=== PATIENT | female | born 1930 | race Caucasian/White ===

== ENCOUNTER 2017-10-14 10:00 | Observation (INO) ==
[2017-10-14] MEDS ORDERED: ONDANSETRON 4 MG/2 ML VIAL IV ONE (10:23)
[2017-10-14] MEDS ORDERED: PANTOPRAZOLE 40 MG VIAL IV ONE (10:24)
[2017-10-14] MEDS ORDERED: 0.9 % SODIUM CHLORIDE 1,000 ML IV ONE ×2 (10:26→11:45)
--- NOTE | 2017-10-14 10:27 | Emergency Department Note ---
General Adult HPI - General Chief complaint: Cold/Flu Symptoms Stated complaint: Coughing up blood Time Seen by Provider: 10/14/17 10:05 Source: patient Mode of arrival: ambulatory Limitations: no limitations - History of Present Illness HPI Narrative: 87-year-old female presents with hematemesis since last night. She states last night she had 2 episodes of vomiting with blood. She had one episode of hematemesis here. This has coffee-ground appearance. She states she has needed multiple transfusions in the past due to slow GI bleed. She takes iron supplements so she has black stool. Her last transfusion was about 5-6 months ago. She also had a fall about a week ago and was seen and had negative rib x- rays. She states she has pain in her ribs as well as her knees. She has a little bit of epigastric pain that radiates up to the left. She denies any nausea at this time. She states after she had an episode of vomiting she was coughing up small amounts of clots. She has a chronic cough. She denies any shortness of breath. Her rib pain is left-sided. She takes antacid medications and has a long history of GERD. She has been on Eliquis for 2 weeks due to paroxysmal A. fib. Patient states she has a blockage on the left side of her vessels so she always has low blood pressure on the left arm and normal pressure on her right arm. - Related Data Home Medications Medication Instructions Recorded Confirmed Amitriptyline [Elavil] 50 mg PO HS PRN 10/14/17 10/14/17 Apixaban [Eliquis] 5 mg PO BID 10/14/17 10/14/17 Aspirin [[place] Aspirin] 81 mg PO DAILY 10/14/17 10/14/17 Ferrous Gluconate [Fergon] 324 mg PO BID 10/14/17 10/14/17 HYDROcodone/APAP 5/325MG [[place] 0.5 tab PO Q6HP PRN 10/14/17 10/14/17 5-325Mg] Norgestrel-Ethinyl Estradiol 1 each PO 10/14/17 [Elinest-28 Tablet] Omeprazole [PriLOSEC] 40 mg PO DAILY 10/14/17 10/14/17 amLODIPine [Norvasc] 5 mg PO DAILY 10/14/17 10/14/17 traZODone HCL [Trazodone HCl] 50 mg PO QHS 10/14/17 10/14/17 Allergies Allergy/AdvReac Type Severity Reaction Status Date / Time nitrofurantoin Allergy Severe Nausea/Vomiting, Verified 10/14/17 10:01 [From MACROBID] SHAKING, DIAPHORESIS Sulfa (Sulfonamide Allergy Mild Hives Verified 10/14/17 10:01 Antibiotics) [SULFA (SULFONAMIDE ANTIBIOTICS)] Review of Systems All systems ED: reviewed and negative except as stated. Past Medical History - Past Medical History Medical history: Reports: atrial fibrillation (paroxysmal), hypertension, other (chronic cough, pulmonary fibrosis, GERD, iron deficiency anemia) Psychiatric history: Reports: no psych history [employer] history: Reports: non-contributory Surgical history ED: Reports: appendectomy Family history: Reports: non-contributory - Social History smoking status: Former smoker Physical Exam Emesis was visualized and it has a coffee-ground appearance Limitations: no limitations General appearance: alert, in no apparent distress Head: atraumatic Eye: Present: normal appearance. Absent: conjunctival injection Neck: Present: normal inspection, full ROM Chest: Present: symmetric chest wall rise, tenderness (left anterior ribs) Respiratory: Present: other (crackles left lower lobe) Cardiovascular: Present: tachycardia, normal heart sounds Abdominal: Present: soft, tenderness, normal bowel sounds Abdominal tenderness: Present: epigastrium, mild Rectal: Present: normal inspection, normal rectal tone, heme (+) stool. Absent : fecal impaction, hemorrhoids, tenderness Extremities: Present: normal inspection, full ROM Neurological: Present: alert, oriented X3 Psychiatric: Present: normal affect, normal mood Skin: Present: warm, dry, intact Course Course Narrative: Blood pressures initially were running low on the right arm and then the cuff was switched to the left. Her blood pressure is 165/94. Patient will have a scope done by Dr. Holt and be admitted. Vital Signs Temperature 98.0 F 10/14/17 10:01 Pulse Rate 55 L 10/14/17 10:01 Respiratory Rate 18 10/14/17 10:01 Blood Pressure 199/72 10/14/17 10:01 Pulse Oximetry (%) 99 10/14/17 10:01 Temperature 98.0 F 10/14/17 14:42 Pulse Rate 97 H 10/14/17 14:45 Respiratory Rate 19 10/14/17 14:45 Blood Pressure 144/109 10/14/17 14:42 Pulse Oximetry (%) 94 10/14/17 14:45 Medical Decision Making - Medical Records Medical records reviewed: Yes I reviewed the patient's medical records. Previous recorded hemoglobin was 12.0 in April. - Lab Data Lab results reviewed: Yes I reviewed the patient's lab results. Result diagrams: 10/14/17 10:23 10/14/17 10:23 Lab Results 10/14/17 10/14/17 10/14/17 Range/Units 10:23 10:23 10:23 WBC 17.6 H (4.5-11.0) K/mcL RBC 3.68 L (4.00-5.20) M/mcL Hgb 10.0 L (12.0-15.0) g/dL Hct 31.1 L (36.0-48.0) % POC Hct 31.0 L (36.0-48.0) % MCV 84.6 (80.0-100.0) fL MCH 27.1 (26.0-34.0) pg MCHC 32.1 (31.0-36.0) g/dL RDW 14.7 H (11.5-14.5) % Plt Count 433 (140-440) K/mcL MPV 8.2 (7.4-10.4) fL Gran % 78.5 H (38.0-78.0) % Lymph % (Auto) 13.4 L (15.5-49.0) % [place] % (Auto) 5.9 (1.0-12.0) % Eos % (Auto) 1.9 (0.0-7.0) % Baso % (Auto) 0.3 (0.0-2.0) % Gran # 13.8 H (1.8-8.0) K/mcL Lymph # (Auto) 2.4 (1.5-4.8) K/mcL [place] # (Auto) 1.0 H (0.1-0.9) K/mcL Eos # (Auto) 0.3 (0.0-0.7) K/mcL Baso # (Auto) 0.1 (0.0-0.3) K/mcL Band Neutrophils % VBG Lactic Acid 1.6 (0.5-2.2) mmol/L POC Sodium 141 (133-145) mmol/L Sodium 139 (133-145) mmol/L POC Potassium 4.1 (3.3-5.1) mmol/L Potassium 4.1 (3.3-5.1) mmol/L POC Chloride 104 (96-108) mmol/L Chloride 103 (96-108) mmol/L Carbon Dioxide 23 (22-30) mmol/L POC Total CO2 24 (22-30) mmol/L Anion Gap 13.0 (8-16) POC BUN 25 H (8-23) mg/dl BUN 22 (8-23) mg/dl Creatinine 0.8 (0.6-1.1) mg/dl POC Creatinine 0.7 (0.6-1.1) mg/dl GFR Calculation 67 Glucose 164 H (70-105) mg/dL POC Glucose 165 H (70-105) mg/dL Calcium 8.8 (8.6-10.4) mg/dl POC WB Ioniz Calcium 1.02 L (1.16-1.32) mmol/L Iron (37-145) mcg/dl TIBC (228-428) ug/dl Unsat Iron Binding (112-346) mcg/dL Transferrin % Sat (15-50) % Ferritin (30-400) ng/ml Total Bilirubin 0.3 (0.0-1.0) mg/dL AST 18 (0-37) U/l ALT 11 (0-40) U/l Alkaline Phosphatase 117 (39-117) U/L Total Protein 6.6 (5.9-8.4) gm/dL Albumin 4.1 (3.2-5.2) gm/dL Globulin 2.5 (2.2-3.7) gm/dL Albumin/Globulin Ratio 1.6 (1.0-2.3) Urine Color Urine Appearance Urine pH (5.0-9.0) Ur Specific [place] (1.000-1.035) Urine Protein (NEG) mg/dL Urine Glucose (UA) (NEG) mg/dL Urine Ketones (NEG) mg/dL Urine Occult Blood (<0.03) mg/dL Urine Nitrate (NEG) Urine Bilirubin (NEG) mg/dL Urine Urobilinogen (NEG) mg/dL Ur Leukocyte Esterase (NEG) /uL Urine RBC (0-1) /hpf Urine WBC (0-4) /hpf Ur Squamous Epith Cells (0-4) /hpf Urine Bacteria (0) /hpf Urine Mucus (0) /hpf Ur Culture Indicated? 10/14/17 10/14/17 10/14/17 Range/Units 10:23 10:23 10:23 WBC (4.5-11.0) K/mcL RBC (4.00-5.20) M/mcL Hgb (12.0-15.0) g/dL Hct (36.0-48.0) % POC Hct (36.0-48.0) % MCV (80.0-100.0) fL MCH (26.0-34.0) pg MCHC (31.0-36.0) g/dL RDW (11.5-14.5) % Plt Count (140-440) K/mcL MPV (7.4-10.4) fL Gran % (38.0-78.0) % Lymph % (Auto) (15.5-49.0) % [place] % (Auto) (1.0-12.0) % Eos % (Auto) (0.0-7.0) % Baso % (Auto) (0.0-2.0) % Gran # (1.8-8.0) K/mcL Lymph # (Auto) (1.5-4.8) K/mcL [place] # (Auto) (0.1-0.9) K/mcL Eos # (Auto) (0.0-0.7) K/mcL Baso # (Auto) (0.0-0.3) K/mcL Band Neutrophils % Not Reportable VBG Lactic Acid (0.5-2.2) mmol/L POC Sodium (133-145) mmol/L Sodium (133-145) mmol/L POC Potassium (3.3-5.1) mmol/L Potassium (3.3-5.1) mmol/L POC Chloride (96-108) mmol/L Chloride (96-108) mmol/L Carbon Dioxide (22-30) mmol/L POC Total CO2 (22-30) mmol/L Anion Gap (8-16) POC BUN (8-23) mg/dl BUN (8-23) mg/dl Creatinine (0.6-1.1) mg/dl POC Creatinine (0.6-1.1) mg/dl GFR Calculation Glucose (70-105) mg/dL POC Glucose (70-105) mg/dL Calcium (8.6-10.4) mg/dl POC WB Ioniz Calcium (1.16-1.32) mmol/L Iron 255 H TNP (37-145) mcg/dl TIBC 335 (228-428) ug/dl Unsat Iron Binding 80 L (112-346) mcg/dL Transferrin % Sat 76 H (15-50) % Ferritin 22.3 L (30-400) ng/ml Total Bilirubin (0.0-1.0) mg/dL AST (0-37) U/l ALT (0-40) U/l Alkaline Phosphatase (39-117) U/L Total Protein (5.9-8.4) gm/dL Albumin (3.2-5.2) gm/dL Globulin (2.2-3.7) gm/dL Albumin/Globulin Ratio (1.0-2.3) Urine Color Urine Appearance Urine pH (5.0-9.0) Ur Specific [place] (1.000-1.035) Urine Protein (NEG) mg/dL Urine Glucose (UA) (NEG) mg/dL Urine Ketones (NEG) mg/dL Urine Occult Blood (<0.03) mg/dL Urine Nitrate (NEG) Urine Bilirubin (NEG) mg/dL Urine Urobilinogen (NEG) mg/dL Ur Leukocyte Esterase (NEG) /uL Urine RBC (0-1) /hpf Urine WBC (0-4) /hpf Ur Squamous Epith Cells (0-4) /hpf Urine Bacteria (0) /hpf Urine Mucus (0) /hpf Ur Culture Indicated? 10/14/17 Range/Units 13:40 WBC (4.5-11.0) K/mcL RBC (4.00-5.20) M/mcL Hgb (12.0-15.0) g/dL Hct (36.0-48.0) % POC Hct (36.0-48.0) % MCV (80.0-100.0) fL MCH (26.0-34.0) pg MCHC (31.0-36.0) g/dL RDW (11.5-14.5) % Plt Count (140-440) K/mcL MPV (7.4-10.4) fL Gran % (38.0-78.0) % Lymph % (Auto) (15.5-49.0) % [place] % (Auto) (1.0-12.0) % Eos % (Auto) (0.0-7.0) % Baso % (Auto) (0.0-2.0) % Gran # (1.8-8.0) K/mcL Lymph # (Auto) (1.5-4.8) K/mcL [place] # (Auto) (0.1-0.9) K/mcL Eos # (Auto) (0.0-0.7) K/mcL Baso # (Auto) (0.0-0.3) K/mcL Band Neutrophils % VBG Lactic Acid (0.5-2.2) mmol/L POC Sodium (133-145) mmol/L Sodium (133-145) mmol/L POC Potassium (3.3-5.1) mmol/L Potassium (3.3-5.1) mmol/L POC Chloride (96-108) mmol/L Chloride (96-108) mmol/L Carbon Dioxide (22-30) mmol/L POC Total CO2 (22-30) mmol/L Anion Gap (8-16) POC BUN (8-23) mg/dl BUN (8-23) mg/dl Creatinine (0.6-1.1) mg/dl POC Creatinine (0.6-1.1) mg/dl GFR Calculation Glucose (70-105) mg/dL POC Glucose (70-105) mg/dL Calcium (8.6-10.4) mg/dl POC WB Ioniz Calcium (1.16-1.32) mmol/L Iron (37-145) mcg/dl TIBC (228-428) ug/dl Unsat Iron Binding (112-346) mcg/dL Transferrin % Sat (15-50) % Ferritin (30-400) ng/ml Total Bilirubin (0.0-1.0) mg/dL AST (0-37) U/l ALT (0-40) U/l Alkaline Phosphatase (39-117) U/L Total Protein (5.9-8.4) gm/dL Albumin (3.2-5.2) gm/dL Globulin (2.2-3.7) gm/dL Albumin/Globulin Ratio (1.0-2.3) Urine Color Straw Urine Appearance Clear Urine pH 5.0 (5.0-9.0) Ur Specific [place] 1.015 (1.000-1.035) Urine Protein Neg (NEG) mg/dL Urine Glucose (UA) Negative (NEG) mg/dL Urine Ketones Neg (NEG) mg/dL Urine Occult Blood 0.03 A (<0.03) mg/dL Urine Nitrate Neg (NEG) Urine Bilirubin Neg (NEG) mg/dL Urine Urobilinogen Neg (NEG) mg/dL Ur Leukocyte Esterase Neg (NEG) /uL Urine RBC 1 (0-1) /hpf Urine WBC 2 (0-4) /hpf Ur Squamous Epith Cells 0 (0-4) /hpf Urine Bacteria 0 (0) /hpf Urine Mucus Few (0) /hpf Ur Culture Indicated? No - Radiology Data Radiology results reviewed: Yes I reviewed the patient's radiology results. No acute posttraumatic change or other significant abnormality Disposition Pt seen by SHEEP KILLER/PA only: Yes Clinical Impression: Upper GI bleed Disposition: Xfer As Inpt ([facility]) Condition: Fair Referrals: Dafne Yao MD [Primary Care Provider] -
[2017-10-14] MEDS ORDERED: PANTOPRAZOLE 80 MG in 0.9 % SODIUM CHLORIDE 100 ML IV SCH (10:30)
[2017-10-14 11:05] LABS: Basophils # (Auto) 0.1 K/mcL (0.0-0.3); Basophils % (Auto) 0.3 % (0.0-2.0); Eosinophils # (Auto) 0.3 K/mcL (0.0-0.7); Eosinophils % (Auto) 1.9 % (0.0-7.0); Granulocytes % (Auto) 78.5 % (38.0-78.0); Lymphocytes # (Auto) 2.4 K/mcL (1.5-4.8); Lymphocytes % (Auto) 13.4 % (15.5-49.0); Mean Cell Volume 84.6 fL (80.0-100.0); Mean Corpuscular HGB Conc 32.1 g/dL (31.0-36.0); Mean Corpuscular Hemoglobin 27.1 pg (26.0-34.0); Monocytes % (Auto) 5.9 % (1.0-12.0); Platelet Count 433 K/mcL (140-440); RBC 3.68 M/mcL (4.00-5.20); Red Cell Distribution Width 14.7 % (11.5-14.5)
--- NOTE | 2017-10-14 11:10 | XRay Report ---
CLINICAL INFORMATION: Trauma COMPARISON: 10/13/2012 portable chest x-ray FINDINGS: Heart size, mediastinum and pulmonary vessels are normal. Minor scattered scarring in the lung bases seen - as before. No infiltrates, effusions or pneumothorax. Left ribs are normal. IMPRESSION: No acute posttraumatic change or other significant abnormality Interpreted and Authenticated by: Raymond Mathis 10/14/17
[2017-10-14] MEDS: HYDROmorphone 2 MG/ML VIAL IV PRN ×2 (11:22→12:59)
[2017-10-14 11:24] LABS: ALT/SGPT 11 U/l (0-40); Albumin 4.1 gm/dL (3.2-5.2); Albumin/Globulin Ratio 1.6 (1.0-2.3); Alkaline Phosphatase 117 U/L (39-117); Blood Urea Nitrogen 22 mg/dl (8-23)
[2017-10-14 13:04] LABS: Ferritin 22.3 ng/ml (30-400)
[2017-10-14] MEDS ORDERED: AMITRIPTYLINE 25 MG TABLET PO PRN (13:44)
[2017-10-14 14:31] LABS: Appearance,Urine CLEAR; Bacteria,Urine 0 /hpf (0); Bilirubin,Urine NEG (NEG); Color,Urine STRAW; Glucose,Urine (UA) NEGATIVE (NEG); Leukocyte Esterase,Urine NEG /uL (NEG); Mucus,Urine FEW /hpf (0); Protein,Urine NEG (NEG); Specific Gravity,Urine 1.015 (1.000-1.035); Urine Blood 0.03 mg/dL (<0.03); Urine RBC 1 /hpf (0-1); Urine Squamous Epithelial Cell 0 /hpf (0-4); Urine WBC 2 /hpf (0-4); Urobilinogen,Urine NEG (NEG)
[2017-10-14] MEDS ORDERED: 0.9 % SODIUM CHLORIDE 1,000 ML IV SCH (14:55)
[2017-10-14] MEDS ORDERED: ONDANSETRON 4 MG/2 ML VIAL IV PRN (14:55)
[2017-10-14] MEDS ORDERED: ACETAMINOPHEN 325 MG TABLET PO PRN (14:55)
[2017-10-14 14:58] LABS: Lymphocytes % 11 % (15-49); Monocytes % (Manual) 8 % (1-12); Platelet Estimate NORMAL (NORMAL); RBC Morphology NORMAL (NORMAL); Segmented Neutrophils % 81 % (38-78)
[2017-10-14] MEDS ORDERED: KETAMINE 10 MG/ML ML IV PRN (15:07)
[2017-10-14] MEDS ORDERED: MIDAZOLAM 2 MG/2 ML VIAL IV SCH (15:15)
[2017-10-14] MEDS ORDERED: PROPOFOL 200 MG/20 ML VIAL IV SCH (15:15)
--- NOTE | 2017-10-14 15:23 | History and Physical Report ---
DATE OF ADMISSION: 10/14/2017 PRIMARY CARE PHYSICIAN: Dr. Yao; Rrts, Dr. Whitley; Inside Barrel Polisher, Dr. Devine. CHIEF COMPLAINT: Hematemesis. HISTORY OF PRESENT ILLNESS: An 87-year-old female who reports last night before bed she started having episodes of emesis described as dark coffee ground blood three times. She started having some coughing after that. She ended up going to bed and sometime after she woke up the next morning started having vomiting again. She threw up twice and then again in the ER. She denies shortness of breath but has increased cough above baseline. She typically has a chronic cough but it has been a little bit worse since she started throwing up. She also had a fall a week ago. She did have a chest x-ray in the ER with ribs as well as AP, which did not show any focal infiltrates. She denies NSAID use other than several Aleve she took about a week ago. She is on Eliquis; however, she has been on that for about 2 weeks for atrial fibrillation by Dr. Whitley. She denies any diarrhea. She does have dark stool but she has had that because she is on iron-no change there. She does complain of lightheadedness and only chest wall pain where she fell. She does have a history of GI bleeds and has received transfusions on occasions. She received a transfusion about 5 [address] Padron was contacted and plans for EGD this afternoon. REVIEW OF SYSTEMS: Positive for hematemesis, headache, lightheadedness, acute on chronic cough, negative for fever, chills, shortness of breath, diarrhea. PAST MEDICAL HISTORY: 1. Pulmonary fibrosis with chronic cough, follows with Dr. Devine. 2. History of GI bleeds with transfusions in the past. 3. History of atrial fibrillation, recently diagnosed, started on Eliquis, follows with Dr. Whitley. 4. Iron deficiency anemia. 5. Hypertension. 6. GERD. PAST SURGICAL HISTORY: Total knee arthroplasty, shoulder surgery, wrist and elbow surgery, appendectomy, hysterectomy, tonsillectomy. FAMILY HISTORY: Mother had heart disease. She did not know her father's medical history. SOCIAL HISTORY: The patient quit smoking about 10 years ago. She drinks alcohol socially, but little. She does not use a cane or walker to get around. She lives with her . ALLERGIES: NITROFURANTOIN, SULFA ANTIBIOTICS. HOME MEDICATIONS: 1. Eliquis. 2. Elavil. 3. Norvasc. 4. Iron. 5. Omeprazole. PHYSICAL EXAMINATION: VITAL SIGNS: Temperature 98, pulse 105, blood pressure 1__/59, oxygen 91%. GENERAL: The patient is alert and awake, in no acute distress. HEENT: Normocephalic, atraumatic. Extraocular movements intact. Pupils equal, reactive to light. Dry mucous membranes. CARDIOVASCULAR: Tachycardic but regular. No murmurs appreciated. PULMONARY: Clear to auscultation bilaterally. No wheezing or rales. ABDOMEN: Soft, mild tenderness to palpation in epigastrium. Positive bowel sounds. EXTREMITIES: No clubbing, cyanosis or edema. NEUROLOGIC: Cranial nerves II-XII grossly intact. No clear loss of sensation. Strength intact both lower. SKIN: Warm and dry, pale. LABORATORY DATA: WBC 17 with hemoglobin of 10. It looks like she was 12 recently outpatient. Chemistry shows a BUN of 22, creatinine 0.8, sodium 139. Lactate 1.6. RADIOLOGIC STUDIES: Chest x-ray unremarkable. ASSESSMENT: 1. Hematemesis in the setting of anticoagulation and history of GERD. 2. Recent history of atrial fibrillation, started on Eliquis, follows with Dr. Whitley. 3. Iron deficiency anemia. 4. Hypertension. 5. History of pulmonary fibrosis, follows with Dr. Devine. PLAN: The patient monitored on telemetry. He received 2 liters of fluid in the ER. I will continue some maintenance is for another liter. Monitor heart rate which is little tachycardic at this time. Blood pressure is stable. Pending Dr. Padron for EGD. Continue appropriate home medications. Hold Eliquis. DVT prophylaxis with SCDs. Further recommendations are pending GI evaluation. CODE STATUS: NO CODE. DAMION:silviano Job ID: [id number] Doc ID: [id number] Rizwan Chadwick DO
[2017-10-14] MEDS ORDERED: PROPOFOL 40 ML IV ONE (16:02)
[2017-10-14] MEDS ORDERED: MIDAZOLAM 2 MG/2 ML VIAL ONE (16:02)
--- NOTE | 2017-10-14 18:16 | Internal Med Progress Note ---
Medical - PN: Subj Patient information: Note initiated : 10/14/17 at 6:14 pm Service Date, if different from initiated Date: [] Patient: Geno Lucas 87 y/o F admitted on 10/14/17 for Coughing Up Blood. Chief Complaint: [] - Constitutional Vitals: Vital Signs Temp Pulse Resp BP Pulse Ox 99.2 F H 83 14 115/41 98 10/14/17 18:10 10/14/17 16:37 10/14/17 16:37 10/14/17 16:37 10/14/17 16:37 Period Temp Pulse Resp BP Sys/[place] Pulse Ox Last 24 Hr 98.0 F-100.6 F 55-110 13-25 73-199/39-109 89-99 Intake and Output 10/14/17 10/14/17 10/14/17 05:59 13:59 21:59 Intake Total 1999 35 / 35 Balance 1999 35 / 35 Weight 150 lb 150 lb Patient Weight 10/15/17 05:59 Weight 150 lb Intake & Output: Intake & Output 10/14/17 10/14/17 10/14/17 05:59 13:59 21:59 Intake Total 1999 35 / 35 Balance 1999 35 / 35 Weight 150 lb 150 lb Intake: IV 1999 35 / 35 Sodium Chloride 0.9% 1,000 ml @ 1999 Wide Open IV BOLUS ONE Rx#: [id number] Protonix 80 mg In Sodium 35 / 35 Chloride 0.9% 100 ml @ 8 MG/HR 10 mls/hr IV Q10H [facility] Rx#: [id number] Other: Stool Color Black Stool Consistency Normal for Patient Medical - PN: Obj Da - Labs CBC & Chem 7: 10/14/17 10:23 10/14/17 10:23 Labs: Abnormal Lab Results 10/14/17 10/14/17 10/14/17 13:40 10:23 10:23 WBC RBC Hgb Hct POC Hct RDW Gran % Lymph % (Auto) Gran # [place] # (Auto) Seg Neutrophils % 81 H Lymphocytes % 11 L POC BUN Glucose POC Glucose POC WB Ioniz Calcium Iron 255 H Unsat Iron Binding 80 L Transferrin % Sat 76 H Ferritin 22.3 L Urine Occult Blood 0.03 A 10/14/17 10/14/17 10:23 10:23 WBC 17.6 H RBC 3.68 L Hgb 10.0 L Hct 31.1 L POC Hct 31.0 L RDW 14.7 H Gran % 78.5 H Lymph % (Auto) 13.4 L Gran # 13.8 H [place] # (Auto) 1.0 H Seg Neutrophils % Lymphocytes % POC BUN 25 H Glucose 164 H POC Glucose 165 H POC WB Ioniz Calcium 1.02 L Iron Unsat Iron Binding Transferrin % Sat Ferritin Urine Occult Blood Meds: Medications Acetaminophen (Tylenol) 650 mg PO Q6HP PRN PRN Reason: PAIN/FEVER > 101 Last Admin: 10/14/17 15:36 Dose: 650 mg Hydrocodone Bitart/Acetaminophen ([place] 5/325mg) 1 tab PO Q4HP PRN PRN Reason: PAIN LEVEL 3-6 Diagnostic Test (Pha) (Accu-Chek) 1 each FS ONCE [facility] Stop: 10/14/17 23:07 Last Admin: 10/14/17 15:39 Dose: Not Given Pantoprazole Sodium 80 mg/ (Sodium Chloride) 100 mls @ 10 mls/hr IV Q10H [facility] Sodium Chloride (Sodium Chloride 0.9%) 1,000 mls @ 84 mls/hr IV .[id number] [facility] Stop: 10/15/17 02:49 Last Admin: 10/14/17 15:26 Dose: 84 mls/hr Ketamine HCl (Ketalar) 50 mg IV ONCE PRN PRN Reason: Sedation Stop: 10/14/17 23:07 Midazolam HCl (Versed) 0 mg IV ONCE [facility] Stop: 10/14/17 23:07 Last Admin: 10/14/17 17:21 Dose: Not Given Ondansetron HCl (Zofran) 4 mg IV Q4HP PRN PRN Reason: Nausea And Vomiting Propofol (Diprivan) 0 mg IV ONCE [facility] Stop: 10/14/17 23:07 Last Admin: 10/14/17 17:21 Dose: Not Given Sodium Chloride (Saline Flush) 10 ml IV Q8 [facility] Medical - PN: A/P - Time Spent With Patient Total time spent is greater than 50% in coordination of care (as documented) at patient's floor/unit and/or counseling patient:
--- NOTE | 2017-10-14 18:22 | Internal Med Progress Note ---
Medical - PN: Subj Patient information: Note initiated : 10/14/17 at 6:20 pm Service Date, if different from initiated Date: [] Patient: Geno Lucas 87 y/o F admitted on 10/14/17 for Coughing Up Blood. Chief Complaint: [] - Constitutional Vitals: Vital Signs Temp Pulse Resp BP Pulse Ox 99.2 F H 83 14 115/41 98 10/14/17 18:10 10/14/17 16:37 10/14/17 16:37 10/14/17 16:37 10/14/17 16:37 Period Temp Pulse Resp BP Sys/[place] Pulse Ox Last 24 Hr 98.0 F-100.6 F 55-110 13-25 73-199/39-109 89-99 Intake and Output 10/14/17 10/14/17 10/14/17 05:59 13:59 21:59 Intake Total 1999 35 / 35 Balance 1999 35 / 35 Weight 150 lb 150 lb Patient Weight 10/15/17 05:59 Weight 150 lb Intake & Output: Intake & Output 10/14/17 10/14/17 10/14/17 05:59 13:59 21:59 Intake Total 1999 35 / 35 Balance 1999 35 / 35 Weight 150 lb 150 lb Intake: IV 1999 35 / 35 Sodium Chloride 0.9% 1,000 ml @ 1999 Wide Open IV BOLUS ONE Rx#: [id number] Protonix 80 mg In Sodium 35 / 35 Chloride 0.9% 100 ml @ 8 MG/HR 10 mls/hr IV Q10H [facility] Rx#: [id number] Other: Stool Color Black Stool Consistency Normal for Patient Medical - PN: Obj Da - Labs CBC & Chem 7: 10/14/17 10:23 10/14/17 10:23 Labs: Abnormal Lab Results 10/14/17 10/14/17 10/14/17 13:40 10:23 10:23 WBC RBC Hgb Hct POC Hct RDW Gran % Lymph % (Auto) Gran # [place] # (Auto) Seg Neutrophils % 81 H Lymphocytes % 11 L POC BUN Glucose POC Glucose POC WB Ioniz Calcium Iron 255 H Unsat Iron Binding 80 L Transferrin % Sat 76 H Ferritin 22.3 L Urine Occult Blood 0.03 A 10/14/17 10/14/17 10:23 10:23 WBC 17.6 H RBC 3.68 L Hgb 10.0 L Hct 31.1 L POC Hct 31.0 L RDW 14.7 H Gran % 78.5 H Lymph % (Auto) 13.4 L Gran # 13.8 H [place] # (Auto) 1.0 H Seg Neutrophils % Lymphocytes % POC BUN 25 H Glucose 164 H POC Glucose 165 H POC WB Ioniz Calcium 1.02 L Iron Unsat Iron Binding Transferrin % Sat Ferritin Urine Occult Blood Meds: Medications Acetaminophen (Tylenol) 650 mg PO Q6HP PRN PRN Reason: PAIN/FEVER > 101 Last Admin: 10/14/17 15:36 Dose: 650 mg Hydrocodone Bitart/Acetaminophen ([place] 5/325mg) 1 tab PO Q4HP PRN PRN Reason: PAIN LEVEL 3-6 Diagnostic Test (Pha) (Accu-Chek) 1 each FS ONCE [facility] Stop: 10/14/17 23:07 Last Admin: 10/14/17 15:39 Dose: Not Given Pantoprazole Sodium 80 mg/ (Sodium Chloride) 100 mls @ 10 mls/hr IV Q10H [facility] Sodium Chloride (Sodium Chloride 0.9%) 1,000 mls @ 84 mls/hr IV .[id number] [facility] Stop: 10/15/17 02:49 Last Admin: 10/14/17 15:26 Dose: 84 mls/hr Ketamine HCl (Ketalar) 50 mg IV ONCE PRN PRN Reason: Sedation Stop: 10/14/17 23:07 Midazolam HCl (Versed) 0 mg IV ONCE [facility] Stop: 10/14/17 23:07 Last Admin: 10/14/17 17:21 Dose: Not Given Ondansetron HCl (Zofran) 4 mg IV Q4HP PRN PRN Reason: Nausea And Vomiting Propofol (Diprivan) 0 mg IV ONCE [facility] Stop: 10/14/17 23:07 Last Admin: 10/14/17 17:21 Dose: Not Given Sodium Chloride (Saline Flush) 10 ml IV Q8 [facility] Medical - PN: A/P - Time Spent With Patient Total time spent is greater than 50% in coordination of care (as documented) at patient's floor/unit and/or counseling patient:
[2017-10-14] MEDS: HYDROcodone/APAP 5/325MG TABLET PO PRN (20:52)
[2017-10-14] MEDS: PANTOPRAZOLE 80 MG in 0.9 % SODIUM CHLORIDE 100 ML IV SCH (20:52)
[2017-10-14] MEDS: 0.9 % SODIUM CHLORIDE 10 ML SYRINGE IV SCH (20:54)
[2017-10-14] MEDS ORDERED: traZODone HCL 50 MG TABLET PO SCH (21:00)
[2017-10-14] MEDS ORDERED: FERROUS GLUCONATE 324 MG TABLET PO SCH (21:00)
[2017-10-15] MEDS: HYDROcodone/APAP 5/325MG TABLET PO PRN ×4 (02:19→22:54)
[2017-10-15] MEDS: 0.9 % SODIUM CHLORIDE 10 ML SYRINGE IV SCH ×3 (05:19→22:48)
--- NOTE | 2017-10-15 06:04 | Emergency Department Note ---
ED Note Addendum Note Addendum: I saw this patient with Miley Reyes PA-C. I agree with her evaluation management documentation. In particular we discussed need for GI management of upper GI bleed. Dr. Holt, process control manager, planned upper endoscopy to be done as part of inpatient consultation. Patient was admitted to Dr. Chadwick the hospitalist
[2017-10-15] MEDS: PANTOPRAZOLE 80 MG in 0.9 % SODIUM CHLORIDE 100 ML IV SCH (06:41)
--- NOTE | 2017-10-15 07:02 | Internal Med Progress Note ---
Medical - PN: Subj Patient information: Note initiated : 10/15/17 at 6:58 am Service Date, if different from initiated Date: [] Patient: Geno Lucas 87 y/o F admitted on 10/14/17 for Coughing Up Blood. Chief Complaint: [] Interval history: No hematemesis overnight no diarrhea. Feeling okay. Has chronic cough. No nausea Review of Systems: denies headache/fever/chills/nausea/vomiting/chest or abdominal pain/dyspnea/ diarrhea. Otherwise see above. - Constitutional Vitals: Vital Signs Temp Pulse Resp BP Pulse Ox 97.3 F 86 18 160/80 96 10/15/17 06:54 10/15/17 06:54 10/15/17 06:54 10/15/17 06:54 10/15/17 06:54 Period Temp Pulse Resp BP Sys/[place] Pulse Ox Last 24 Hr 97.3 F-100.6 F 55-110 13-25 73-199/39-109 89-99 Intake and Output 10/14/17 10/15/17 10/15/17 21:59 05:59 13:59 Intake Total 35 / 35 1245 / 1245 98 / 98 Output Total 450 / 450 950 / 950 Balance -415 / -415 295 / 295 98 / 98 Weight 151 lb 8 oz Intake & Output: Intake & Output 10/14/17 10/15/17 10/15/17 21:59 05:59 13:59 Intake Total 35 / 35 1245 / 1245 98 / 98 Output Total 450 / 450 950 / 950 Balance -415 / -415 295 / 295 98 / 98 Weight 151 lb 8 oz Intake: IV 35 / 35 1065 / 1065 98 / 98 Sodium Chloride 0.9% 1,000 ml @ 1000 / 1000 84 mls/hr IV .[id number] [facility] Rx#: [id number] Protonix 80 mg In Sodium 35 / 35 98 / 98 Chloride 0.9% 100 ml @ 8 MG/HR 10 mls/hr IV Q10H [facility]EL Rx#: [id number] Oral 180 / 180 Output: Void Amount 450 / 450 950 / 950 # of times incontinent of urine 0 / 0 Other: Urine Appearance Clear Urine Color Dark Yellow Urine Odor Normal # Voids 1 1 # Bowel Movements 0 Exam: General: Alert, Awake, No acute Distress HEENT: EOMI, CV: RRR, 1/6 SM Pulm: Clear b/l, no wheezing/rhonchi/rales Abd: soft, nontender, +BS x4 Ext: no clubbing/cyanosis/edema Neuro: Alert, no focal deficits, moves all extremities Skin: warm/dry Medical - PN: Obj Da - Labs CBC & Chem 7: 10/15/17 07:20 10/14/17 10:23 Labs: Abnormal Lab Results 10/14/17 10/14/17 10/14/17 19:02 13:40 10:23 WBC RBC Hgb 7.6 L Hct 23.7 L POC Hct RDW Gran % Lymph % (Auto) Gran # [place] # (Auto) Seg Neutrophils % 81 H Lymphocytes % 11 L POC BUN Glucose POC Glucose POC WB Ioniz Calcium Iron Unsat Iron Binding Transferrin % Sat Ferritin Urine Occult Blood 0.03 A 10/14/17 10/14/17 10/14/17 10:23 10:23 10:23 WBC 17.6 H RBC 3.68 L Hgb 10.0 L Hct 31.1 L POC Hct 31.0 L RDW 14.7 H Gran % 78.5 H Lymph % (Auto) 13.4 L Gran # 13.8 H [place] # (Auto) 1.0 H Seg Neutrophils % Lymphocytes % POC BUN 25 H Glucose 164 H POC Glucose 165 H POC WB Ioniz Calcium 1.02 L Iron 255 H Unsat Iron Binding 80 L Transferrin % Sat 76 H Ferritin 22.3 L Urine Occult Blood Meds: Medications Acetaminophen (Tylenol) 650 mg PO Q6HP PRN PRN Reason: PAIN/FEVER > 101 Last Admin: 10/14/17 15:36 Dose: 650 mg Hydrocodone Bitart/Acetaminophen ([place] 5/325mg) 1 tab PO Q4HP PRN PRN Reason: PAIN LEVEL 3-6 Last Admin: 10/15/17 02:19 Dose: 1 tab Pantoprazole Sodium 80 mg/ (Sodium Chloride) 100 mls @ 10 mls/hr IV Q10H [facility] Last Admin: 10/15/17 06:41 Dose: 8 mg/hr, 10 mls/hr Ondansetron HCl (Zofran) 4 mg IV Q4HP PRN PRN Reason: Nausea And Vomiting Sodium Chloride (Saline Flush) 10 ml IV Q8 [facility] Last Admin: 10/15/17 05:19 Dose: Not Given Medical - PN: A/P - Time Spent With Patient Total time spent is greater than 50% in coordination of care (as documented) at patient's floor/unit and/or counseling patient: - Narrative A/P Narrative: A: * Hematemesis in the setting of anticoagulation and history of GERD: 2/2 eso ulcers / cesar-jay tear -Hgb 7.9<7.6<10 * Recent history of atrial fibrillation, started on Eliquis several weeks ago, follows with Dr. Whitley. * Iron deficiency anemia. * Hypertension. * History of pulmonary fibrosis, follows with Dr. Devine: P: -GI following -Monitor H&H -clear liquids -Eliquis held, restart depending on EGD findings for timing -ppi gtt to bid - -ppx: SCD
--- NOTE | 2017-10-15 08:04 | Operative Note ---
DATE OF OPERATION: 10/14/2017 PREPROCEDURE DIAGNOSIS: Upper GI bleed secondary to ulcer. POSTPROCEDURE DIAGNOSES: 1. Gastroesophageal reflux disease with esophageal ulcers, LA grade C. 2. 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 3. Hiatal hernia. PROCEDURE: Esophagogastroduodenoscopy. INSTRUMENT USED: Olympus MARTIN [id number] endoscope. SPECIMENS OBTAINED: Biopsies from antrum for CLOtest. CLOtest RESULTS: negative INDICATIONS: The patient is an 87-year-old lady whose primary care provider is Dr. Dafne Yao. The patient was seen in the emergency department by Miley Reyes NP and Jeromy Ramos MD. She has for a while, had some nausea and vomiting and brought up some coffee ground-like emesis. She also has vomited some blood clots. She does have reflux symptoms. She was somewhat tachycardic when she was in the emergency department at 106. Stool was guaiac positive. She was placed on a Protonix drip. EGD is indicated to evaluate for the source of and to treat the bleeding. It should be noted the patient has had previous EGD in times past that showed no evidence of Helicobacter on the stomach biopsies. In the esophagus there was some inflammation. The patient did have reflux esophagitis, LA grade C in the past on an EGD in December 2013. She did have some gastritis also. The patient believes she was taking omeprazole 40 mg once a day prior to the GI bleed and prior to admission. Because of the bleeding and some hemodynamic changes endoscopy is indicated. The patient is on Eliquis. I do not believe she is taking aspirin. INFORMED CONSENT: The procedure was reviewed with the patient. The patient had no further questions and accepts the risks and benefits thereof. One of the risks that were discussed included . Additional risks that were also discussed included bleeding, reaction to medication, possible perforation and possible need for surgery. IV MEDICATIONS USED: Versed 2, propofol 80. FINDINGS: ESOPHAGUS: Proximal and mid esophagus normal. Distal esophagus from around 30 to 35 cm there was erythema and ulceration noted. This is consistent with LA grade C. Also, in or adjacent to an ulcer there was a 1.5 x 2 cm long area irritation and somewhat raw tissue that seemed consistent with a partially sealed Kendal-Scott tear. There was no significant bleeding noted. No bleeding was precipitated when the area was washed nor when the endoscope was pushed through this area. EG junction was at 35 cm. There was erythema, edema and ulceration noted. There was a hiatal hernia down to 37 cm. STOMACH: Mucosa of the cardia, fundus, body, and antrum appeared normal. There was some coffee ground-like material on the mucosa. Biopsies were taken from the antrum to check for Helicobacter -- CLOtest. PYLORUS: Normal. DUODENUM: This appeared normal. RECOMMENDATIONS: Antireflux measures. She should continue on IV PPI medication, high dose for a while; then it can be changed to p.o. Sips and chips may be allowed today. In the morning if she does not have much trouble with nausea liquids may be tolerated. Diet may be advanced as tolerated. I anticipate the patient will need to be in the hospital 2 or 3 days. Eliquis can be restarted in a few days. In about 3 months I would recommended she repeat EGD as an outpatient in the hospital to evaluate status of healing. It is entirely possible we may need to change to a different PPI medication. I am a little troubled that she has developed ulcers while allegedly taking omeprazole 40 mg a day. If the patient has recurrent bleeding, repeat EGD and injection of substance into the Kendal-Scott tear may be of benefit. Currently, since the bleeding was stopped and did not restart with some trauma to the area or stress because of the scope or water spray I felt it best not to proceed with treatment at this time. SEDATION TIME: 16:05 to 16:45. Please refer to the preprocedure nurse's notes, procedure flowsheet, procedure record, and post-procedure assessment for details of the sedation including the pre-, intra-, and post-service work. CRD:kh Job ID: [id number] Doc ID: [id number] Margarito SALCIDO
[2017-10-15] MEDS ORDERED: amLODIPine 5 MG TABLET PO SCH (09:00)
[2017-10-15] MEDS: PANTOPRAZOLE 40 MG VIAL IV SCH (16:59)
[2017-10-16] MEDS: HYDROcodone/APAP 5/325MG TABLET PO PRN ×2 (03:25→07:48)
[2017-10-16] MEDS: 0.9 % SODIUM CHLORIDE 10 ML SYRINGE IV SCH (05:43)
--- NOTE | 2017-10-16 06:48 | Internal Med Progress Note ---
Medical - PN: Subj Patient information: Note initiated : 10/16/17 at 6:46 am Service Date, if different from initiated Date: [] Patient: Geno Lucas 87 y/o F admitted on 10/14/17 for Coughing Up Blood/ Upper GI Bleed. Chief Complaint: [] Interval history: No hematemesis overnight no diarrhea. Feeling okay. Has chronic cough. No nausea 10/16 no issues/emesis/nause overnight Review of Systems: denies headache/fever/chills/nausea/vomiting/chest or abdominal pain/dyspnea/ diarrhea. Otherwise see above. - Constitutional Vitals: Vital Signs Temp Pulse Resp BP Pulse Ox 97.4 F 84 15 138/58 92 10/16/17 06:27 10/16/17 04:00 10/16/17 06:27 10/16/17 06:27 10/16/17 06:27 Period Temp Pulse Resp BP Sys/[place] Pulse Ox Last 24 Hr 97.3 F-98.8 F 80-88 14-20 134-160/58-84 92-96 Intake and Output 10/15/17 10/16/17 10/16/17 21:59 05:59 13:59 Output Total 800 / 800 Balance -800 / -800 Weight 150 lb Intake & Output: Intake & Output 10/15/17 10/16/17 10/16/17 21:59 05:59 13:59 Output Total 800 / 800 Balance -800 / -800 Weight 150 lb Output: Void Amount 800 / 800 Exam: General: Alert, Awake, No acute Distress HEENT: EOMI, CV: RRR, 1/6 SM Pulm: Clear b/l, no wheezing/rhonchi/rales Abd: soft, nontender, +BS x4 Ext: no clubbing/cyanosis/edema Neuro: Alert, no focal deficits, moves all extremities Skin: warm/dry Medical - PN: Obj Da - Labs CBC & Chem 7: 10/16/17 07:11 10/14/17 10:23 Labs: Abnormal Lab Results 10/15/17 10/14/17 10/14/17 07:20 19:02 13:40 WBC RBC Hgb 7.9 L 7.6 L Hct 24.9 L 23.7 L POC Hct RDW Gran % Lymph % (Auto) Gran # [place] # (Auto) Seg Neutrophils % Lymphocytes % POC BUN Glucose POC Glucose POC WB Ioniz Calcium Iron Unsat Iron Binding Transferrin % Sat Ferritin Urine Occult Blood 0.03 A 10/14/17 10/14/17 10/14/17 10:23 10:23 10:23 WBC RBC Hgb Hct POC Hct 31.0 L RDW Gran % Lymph % (Auto) Gran # [place] # (Auto) Seg Neutrophils % 81 H Lymphocytes % 11 L POC BUN 25 H Glucose 164 H POC Glucose 165 H POC WB Ioniz Calcium 1.02 L Iron 255 H Unsat Iron Binding 80 L Transferrin % Sat 76 H Ferritin 22.3 L Urine Occult Blood 10/14/17 10:23 WBC 17.6 H RBC 3.68 L Hgb 10.0 L Hct 31.1 L POC Hct RDW 14.7 H Gran % 78.5 H Lymph % (Auto) 13.4 L Gran # 13.8 H [place] # (Auto) 1.0 H Seg Neutrophils % Lymphocytes % POC BUN Glucose POC Glucose POC WB Ioniz Calcium Iron Unsat Iron Binding Transferrin % Sat Ferritin Urine Occult Blood Meds: Medications Acetaminophen (Tylenol) 650 mg PO Q6HP PRN PRN Reason: PAIN/FEVER > 101 Last Admin: 10/14/17 15:36 Dose: 650 mg Hydrocodone Bitart/Acetaminophen ([place] 5/325mg) 1 tab PO Q4HP PRN PRN Reason: PAIN LEVEL 3-6 Last Admin: 10/16/17 03:25 Dose: 1 tab Ondansetron HCl (Zofran) 4 mg IV Q4HP PRN PRN Reason: Nausea And Vomiting Pantoprazole Sodium (Protonix) 40 mg IV BIDAC ON LICENSE OF [facility] Last Admin: 10/15/17 16:59 Dose: 40 mg Sodium Chloride (Saline Flush) 10 ml IV Q8 ON LICENSE OF [facility] Last Admin: 10/16/17 05:43 Dose: 10 ml Medical - PN: A/P - Time Spent With Patient Total time spent is greater than 50% in coordination of care (as documented) at patient's floor/unit and/or counseling patient: - Narrative A/P Narrative: A: * Hematemesis in the setting of anticoagulation and history of GERD: 2/2 eso ulcers / cesar-jay tear -Hgb9.9<7.9<7.6<10 * Recent history of atrial fibrillation, started on Eliquis several weeks ago, follows with Dr. Whitley. * Iron deficiency anemia. * Hypertension. * History of pulmonary fibrosis, follows with Dr. Devine: P: -GI following -Monitor H&H -clear liquids -Eliquis held, restart depending on EGD findings for timing -ppi gtt to bid - -ppx: SCD d/c planning
[2017-10-16] MEDS: PANTOPRAZOLE 40 MG VIAL IV SCH (07:17)
--- NOTE | 2017-10-16 08:30 | Discharge Summary ---
Medical - DS: Prov Patient information: Note initiated : 10/16/17 at 8:27 am Service Date, if different from initiated Date: [] Patient: Geno Lucas a 87 y/o F admitted on 10/14/17 for Coughing Up Blood/ Upper GI Bleed. Chief Complaint: [gi bleed] Date of admission: 10/14/17 14:55 Discharge date: 10/16/17 Primary care physician: Dafne Yao Consults: 10/14/17 Consult to Physician [CONS] Stat Comment: Consulting Provider: Rizwan Chadwick Reason For Exam: Physician to Consult 10/14/17 12:54 Consult to Physician [CONS] Stat Comment: Consulting Provider: Margarito Padron Reason For Exam: Physician to Consult Medical - DS: Meds - Discharge Medications Prescriptions: Omeprazole [Prilosec] 40 mg PO BID #60 cap Active and Home Medications: Home Medications Amitriptyline [Elavil] 50 mg PO HS PRN 10/14/17 [History Confirmed 10/14/17 Last Taken 10/13/17 21:00] Apixaban [Eliquis] 5 mg PO BID 10/14/17 [History Confirmed 10/14/17 Last Taken 10/14/17 06:00] Ferrous Gluconate [Fergon] 324 mg PO BID 10/14/17 [History Confirmed 10/14/17 Last Taken 10/13/17 21:00] HYDROcodone/APAP 5/325MG [[place] 5-325Mg] 0.5 tab PO Q6HP PRN 10/14/17 [History Confirmed 10/14/17 Last Taken 10/13/17 21:00] Norgestrel-Ethinyl Estradiol [Elinest-28 Tablet] 1 each PO 10/14/17 [History Last Taken Unknown] Omeprazole [PriLOSEC] 40 mg PO BID 10/14/17 [History Confirmed 10/14/17 Last Taken 10/14/17 06:00] amLODIPine [Norvasc] 5 mg PO DAILY 10/14/17 [History Confirmed 10/14/17 Last Taken 10/14/17 06:00] Medical - DS: Hosp Hospital course: Mr. Lucas is a 87 year old F HISTORY OF PRESENT ILLNESS: An 87-year-old female who reports last night before bed she started having episodes of emesis described as dark coffee ground blood three times. She started having some coughing after that. She ended up going to bed and sometime after she woke up the next morning started having vomiting again. She threw up twice and then again in the ER. She denies shortness of breath but has increased cough above baseline. She typically has a chronic cough but it has been a little bit worse since she started throwing up. She also had a fall a week ago. She did have a chest x-ray in the ER with ribs as well as AP, which did not show any focal infiltrates. She denies NSAID use other than several Aleve she took about a week ago. She is on Eliquis; however, she has been on that for about 2 weeks for atrial fibrillation by Dr. Whitley. She denies any diarrhea. She does have dark stool but she has had that because she is on iron-no change there. She does complain of lightheadedness and only chest wall pain where she fell. She does have a history of GI bleeds and has received transfusions on occasions. She received a transfusion about 5 to [address] Padron was contacted and plans for EGD this afternoon. Course: Patient underwent EGD by Dr. Holt which revealed esophageal ulcers and small Kendal-Scott tear. She had no emesis since prior to admission her hemoglobin remained stable she tolerated liquids and full liquid diet. she is continued on twice daily PPI. Patient is doing well feeling better and stable for discharge. Will restart Eliquis in 5 days. Discharge diagnosis: Upper GI bleed - Time Spent with Patient Total time spent providing and/or coordinating discharge services: Greater than 30 minutes Medical - DS: Exam - Constitutional Vitals: Vital Signs Temp Pulse Resp BP Pulse Ox 10/16/17 06:27 97.4 F 15 138/58 92 10/16/17 04:00 98.0 F 84 18 151/61 92 10/16/17 00:00 98.0 F 86 18 94 10/15/17 20:00 98.2 F 80 20 140/84 95 10/15/17 16:00 98.8 F 14 138/74 94 10/15/17 12:00 97.8 F 88 14 134/80 96 Intake and Output 10/15/17 10/16/17 10/16/17 21:59 05:59 13:59 Intake Total 100 / 100 Output Total 800 / 800 Balance 100 / 100 -800 / -800 Intake: IV 100 / 100 Output: Void Amount 800 / 800 Other: Weight 150 lb Medical - DS: Data Labs on day of discharge: Labs from last 24 hours 10/16/17 07:11 Hgb 9.9 L Hct 30.9 L Medical - DS: A/P - Patient/Caregiver Discharge Instructions Activity: increase activity as tolerated Diet: Regular Diet - Follow up Plan Follow up with: Margarito Padron MD [Physician] - (Dr. Padron's office will contact you on Thursday to schedule your appointment.) Dafne Yao MD [Primary Care Provider] - 10/23/17 10:30 am Disposition: Home, Self-Care Prognosis: Fair Rehab Potential: Good
== END 2017-10-16 11:15 | disposition home or self-care (01) ==
LOC: ICU 10:00 → ED 10:00 → ICU 15:00
PROVIDERS: ADMIT Internal Medicine; ATTEND Internal Medicine

== ENCOUNTER 2018-03-10 17:56 | Inpatient (IN) ==
--- NOTE | 2018-03-10 18:25 | Emergency Department Note ---
Weakness HPI - General Chief complaint: Weakness Stated complaint: cough, PNA, possible GI bleed, Time Seen by Provider: 03/10/18 18:14 Source: patient Mode of arrival: ambulatory Limitations: no limitations - History of Present Illness HPI Narrative: This patient was sent over from [facility] because of pneumonia and a hemoglobin of 7. He has had chronic GI blood loss for quite a long time and has been on iron replacement. She did have endoscopy just a few days ago and Dr. Holt said her esophagitis looked better. - Related Data Home Medications Medication Instructions Recorded Confirmed Amitriptyline [Elavil] 50 mg PO HS PRN 10/14/17 10/14/17 Apixaban [Eliquis] 5 mg PO BID 10/14/17 10/14/17 Ferrous Gluconate [Fergon] 324 mg PO BID 10/14/17 10/14/17 HYDROcodone/APAP 5/325MG [[place] 0.5 tab PO Q6HP PRN 10/14/17 10/14/17 5-325Mg] Norgestrel-Ethinyl Estradiol 1 each PO 10/14/17 [Elinest-28 Tablet] amLODIPine [Norvasc] 5 mg PO DAILY 10/14/17 10/14/17 Previous Rx's Medication Instructions Recorded HYDROcodone/APAP 5/325MG [[place] 1 tab PO Q6HP PRN #10 tab 10/16/17 5-325Mg] Omeprazole [Prilosec] 40 mg PO BID #60 cap 10/16/17 Allergies Allergy/AdvReac Type Severity Reaction Status Date / Time Sulfa (Sulfonamide Allergy Mild Hives Verified 03/10/18 18:00 Antibiotics) [SULFA (SULFONAMIDE ANTIBIOTICS)] nitrofurantoin AdvReac Mild Nausea/Vomiting, Verified 03/10/18 18:00 [From MACROBID] SHAKING, DIAPHORESIS Review of Systems All systems ED: reviewed and negative except as stated. Past Medical History - Past Medical History Medical history: Reports: atrial fibrillation (paroxysmal), glaucoma, hyperlipidemia, hypertension, thyroid disease, other (chronic cough, pulmonary fibrosis, GERD, iron deficiency anemia) Psychiatric history: Reports: no psych history [employer]PER[employer]OR history: Reports: non-contributory Surgical history ED: Reports: appendectomy - Social History smoking status: Former smoker Physical Exam Limitations: no limitations General appearance: alert Head: atraumatic Eye: Present: normal appearance ENT: normal exam Neck: Present: normal inspection Chest: Present: normal inspection Respiratory: Present: rales/crackles Cardiovascular: Present: regular rate, normal rhythm, normal heart sounds Abdominal: Present: soft. Absent: distention, tenderness Rectal: Present: heme (+) stool. Absent: black stool, bloody stool Neurological: Present: alert Psychiatric: Present: normal affect, normal mood Skin: Present: warm, dry, intact Course Vital Signs Temperature 99.4 F H 03/10/18 17:57 Pulse Rate 102 H 03/10/18 17:57 Respiratory Rate 22 03/10/18 17:57 Blood Pressure 152/54 03/10/18 17:57 Pulse Oximetry (%) 95 03/10/18 17:57 Temperature 99.4 F H 03/10/18 17:57 Pulse Rate 102 H 03/10/18 17:57 Respiratory Rate 22 03/10/18 17:57 Blood Pressure 152/54 03/10/18 17:57 Pulse Oximetry (%) 95 03/10/18 17:57 Weakness - MDM Narrative Medical decision making narrative: I discussed the case with Dr. Moody and she will be admitted to the hospital FOR antibiotics and blood transfusion. 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 Condition: Good Referrals: Dafne Yao MD [Primary Care Provider] - Time of Disposition: 18:35
[2018-03-10] MEDS ORDERED: cefTRIAXone 1 GM VIAL IV ONE (18:35)
[2018-03-10] MEDS ORDERED: LEVOFLOXACIN 750 MG/150 ML BAG IV ONE (18:35)
[2018-03-10 19:21] LABS: ALT/SGPT 12 U/l (0-40); Albumin 3.4 gm/dL (3.2-5.2); Albumin/Globulin Ratio 1.5 (1.0-2.3); Alkaline Phosphatase 88 U/L (39-117); Blood Urea Nitrogen 12 mg/dl (8-23)
[2018-03-10 19:26] LABS: Basophils # (Auto) 0 K/mcL (0.0-0.3); Basophils % (Auto) 0.6 % (0.0-2.0); Eosinophils # (Auto) 0 K/mcL (0.0-0.7); Eosinophils % (Auto) 0.7 % (0.0-7.0); Granulocytes % (Auto) 78.9 % (38.0-78.0); Lymphocytes # (Auto) 0.5 K/mcL (1.5-4.8); Lymphocytes % (Auto) 11.1 % (15.5-49.0); Mean Cell Volume 82.6 fL (80.0-100.0); Monocytes # (Auto) 0.4 K/mcL (0.1-0.9); Monocytes % (Auto) 8.7 % (1.0-12.0); Platelet Count 304 K/mcL (140-440); Red Cell Distribution Width 15.1 % (11.5-14.5)
[2018-03-10 20:21] LABS: Retic Absolute 4.2 % (0.5-1.5)
[2018-03-10] MEDS ORDERED: 0.9 % SODIUM CHLORIDE 1,000 ML IV ONE (20:27)
--- NOTE | 2018-03-10 20:28 | Internal Med History&Physical ---
Medical - H&P: HPI Patient information: Note initiated : 03/10/18 at 8:25 pm Service Date, if different from initiated Date: [] Patient: Geno Lucas a 87 y/o F admitted on for Cough, PNA, Possible GI Bleed,. Chief Complaint: [] History of present illness: Ms. Lucas is a 87 year old F with history of upper GI bleed in the past atrial fibrillation on Eliquis presents to the emergency room for shortness of breath on exertion palpitations that has been bothering her for the last 1 week. The patient notes that for the last 1 week she has felt very weak, very short of breath. She noticed this started last Thursday she was feeling very tired and she went to sleep and woke up the next day. She was feeling better then and went for her aerobics class and noted that she is very short of breath on activities that usually she could do without any problems. The patient then subsequently came down with cough, weakness myalgias. The cough was dry without any expectoration. The patient admits to having dark stools but no obvious blood in the stools no black stools no blood in the urine. She was seen in urgent care center at [facility] weighted workup on her chest x-ray labs and was sent here to the ER with a diagnosis of possible pneumonia as well as anemia. In the emergency room patient had a low-grade temperature 99.4 heart rate 97 blood pressure 152 x 54 respirations 22, saturating 100% on 2 L of oxygen. Chest x-ray was interpreted as pneumonia by the urgent care provider, I am unable to appreciate any pneumonia looking at those images. Blood cultures were sent patient was given antibiotics Labs showed a hemoglobin of 6.9, occult blood test was positive patient is being admitted to the hospital for further management All systems: reviewed and no additional remarkable complaints except as stated (As per HPI is negative) Medical - H&P: PMH Medical history: History of GI bleed Anemia Atrial fibrillation Pulmonary fibrosis Reflux disease Hypertension Surgical history: Patient has had total knee arthroplasty Shoulder surgery Knee and elbow surgery Appendectomy Hysterectomy Tonsillectomy Pertinent family history: Mother has heart disease Social history: Patient is an ex-smoker Social alcohol use Denies any substance use Medical - H&P: Meds Home Medications Medication Instructions Recorded Confirmed Type Amitriptyline [Elavil] 50 mg PO HS PRN 10/14/17 10/14/17 History Apixaban [Eliquis] 5 mg PO BID 10/14/17 10/14/17 History Ferrous Gluconate [Fergon] 324 mg PO BID 10/14/17 10/14/17 History HYDROcodone/APAP 5/325MG [Aldrich 0.5 tab PO Q6HP PRN 10/14/17 10/14/17 History 5-325Mg] Norgestrel-Ethinyl Estradiol 1 each PO 10/14/17 History [Elinest-28 Tablet] amLODIPine [Norvasc] 5 mg PO DAILY 10/14/17 10/14/17 History HYDROcodone/APAP 5/325MG [Aldrich 1 tab PO Q6HP PRN #10 tab 10/16/17 Rx 5-325Mg] Omeprazole [Prilosec] 40 mg PO BID #60 cap 10/16/17 Rx Allergies Allergy/AdvReac Type Severity Reaction Status Date / Time Sulfa (Sulfonamide Allergy Mild Hives Verified 03/10/18 18:00 Antibiotics) [SULFA (SULFONAMIDE ANTIBIOTICS)] nitrofurantoin AdvReac Mild Nausea/Vomiting, Verified 03/10/18 18:00 [From MACROBID] SHAKING, DIAPHORESIS Medical - H&P: Exam - Constitutional Vitals: Temp Pulse Resp BP Pulse Ox 99.4 F H 94 H 19 140/59 100 03/10/18 17:57 03/10/18 19:31 03/10/18 20:01 03/10/18 20:01 03/10/18 19:31 Exam: GENERAL: The patient is a well-developed, well-nourished in no apparent distress. Is alert and oriented x3. VITAL SIGNS: Reviewed and as noted elsewhere. HEENT: Head is normocephalic and atraumatic. Extraocular muscles are intact. Pupils are equal, round, and reactive to light. Nares appeared normal. Mouth appears any without lesions. Mucous membranes are moist. NECK: Normal to inspection, Supple, No lymphadenopathy or thyromegaly. LUNGS: Air entry equal on both sides, no wheezing, crackles or rhonchi noted. No accessory muscles of respiration HEART: Regular rate and rhythm normal, S1 and S2 heard, no Gallop, S3 or Rub Noted, No Gross murmur heard. ABDOMEN: Soft, nontender, and nondistended. Positive bowel sounds. No h epatosplenomegaly was noted. EXTREMITIES: No cyanosis, clubbing, rash, lesions or edema. NEUROLOGIC: Cranial nerves II through XII are grossly intact. Motor and Sensory System Grossly Intact PSYCHIATRIC: Normal affect, Normal Mood. Appropriate Behavior. SKIN: No ulceration or wounds noted, No jaundice, No rash noted. Medical - H&P: Reslt - Labs CBC & Chem 7: 03/10/18 18:15 03/10/18 18:15 Labs: Short CBC 03/10/18 Range/Units 18:15 WBC 4.8 (4.5-11.0) K/mcL Hgb 6.9 L* (12.0-15.0) g/dL Hct 21.4 L (36.0-48.0) % Plt Count 304 (140-440) K/mcL BMP 03/10/18 18:15 Sodium 137 Potassium 3.6 Chloride 103 Carbon Dioxide 23 BUN 12 Creatinine 0.7 Glucose 89 Calcium 7.6 L Liver Function 03/10/18 Range/Units 18:15 Total Bilirubin 0.2 (0.0-1.0) mg/dL AST 21 (0-37) U/l ALT 12 (0-40) U/l Alkaline Phosphatase 88 (39-117) U/L Albumin 3.4 (3.2-5.2) gm/dL Medical - H&P: A/P - Narrative A/P Narrative: A/P Acute blood loss anemia GI bleed, upper vs Lower ATrial fibrillation on eliquis (takes only one pill daily) Pulmonary fibrosis VIral syndrome, vs PNA GERD HTN Plan Admit to med surg Transfuse 2 units of blood trend hb IV PPI for now touch base with Dr Holt in AM hold eliquis for now Resume home meds as appropriate Regular diet Full code.
[2018-03-10 20:42] LABS: Ferritin 43.2 ng/ml (30-400)
[2018-03-10] MEDS ORDERED: ALBUTEROL SULFATE 2.5 MG/3 ML NEBULIZER NEB PRN (21:18)
[2018-03-10] MEDS ORDERED: oxyCODONE HCL 5 MG TABLET PO PRN (21:18)
[2018-03-10] MEDS ORDERED: ONDANSETRON 4 MG/2 ML VIAL IV PRN (21:18)
[2018-03-10] MEDS ORDERED: NALOXONE HCL 0.4 MG/ML VIAL IV PRN (21:18)
[2018-03-10] MEDS ORDERED: ACETAMINOPHEN 325 MG TABLET PO PRN (21:18)
[2018-03-10] MEDS ORDERED: HYDROmorphone 2 MG/ML VIAL IV PRN (21:18)
[2018-03-10] MEDS: 0.9 % SODIUM CHLORIDE 250 ML IV SCH (21:29)
[2018-03-10] MEDS: 0.9 % SODIUM CHLORIDE 10 ML SYRINGE IV SCH (21:31)
[2018-03-10 22:28] LABS: Appearance,Urine CLEAR; Bacteria,Urine 0 /hpf (0); Bilirubin,Urine NEG (NEG); Color,Urine YELLOW; Glucose,Urine (UA) NEGATIVE (NEG); Leukocyte Esterase,Urine NEG /uL (NEG); Mucus,Urine FEW /hpf (0); Protein,Urine NEG (NEG); Specific Gravity,Urine 1.013 (1.000-1.035); Urine Blood 0.03 mg/dL (<0.03); Urine RBC 1 /hpf (0-1); Urine Squamous Epithelial Cell < 1 /hpf (0-4); Urine WBC 1 /hpf (0-4); Urobilinogen,Urine NEG (NEG)
[2018-03-10] MEDS: PANTOPRAZOLE 40 MG VIAL IV SCH (23:22)
[2018-03-11] MEDS: 0.9 % SODIUM CHLORIDE 250 ML IV SCH (03:24)
[2018-03-11] MEDS: 0.9 % SODIUM CHLORIDE 10 ML SYRINGE IV SCH ×4 (05:14→22:06)
[2018-03-11] MEDS: PANTOPRAZOLE 40 MG VIAL IV SCH ×2 (06:58→17:48)
[2018-03-11] MEDS: CYANOCOBALAMIN (VITAMIN B-12) 500 MCG TABLET PO SCH (09:45)
[2018-03-11] MEDS: OSELTAMIVIR PHOSPHATE 75 MG CAPSULE PO SCH ×2 (09:45→22:05)
[2018-03-11] MEDS: LEVOFLOXACIN 750 MG/150 ML BAG IV SCH (09:46)
[2018-03-11 11:15] LABS: Basophils # (Auto) 0 K/mcL (0.0-0.3); Basophils % (Auto) 0.8 % (0.0-2.0); Eosinophils # (Auto) 0 K/mcL (0.0-0.7); Eosinophils % (Auto) 1.5 % (0.0-7.0); Granulocytes % (Auto) 60.4 % (38.0-78.0); Lymphocytes # (Auto) 0.6 K/mcL (1.5-4.8); Lymphocytes % (Auto) 20.3 % (15.5-49.0); Mean Cell Volume 86.1 fL (80.0-100.0); Mean Corpuscular HGB Conc 31.7 g/dL (31.0-36.0); Monocytes # (Auto) 0.5 K/mcL (0.1-0.9); Platelet Count 263 K/mcL (140-440); RBC 3.72 M/mcL (4.00-5.20); Red Cell Distribution Width 15.7 % (11.5-14.5)
[2018-03-11 11:44] LABS: ALT/SGPT 12 U/l (0-40); Albumin 3.3 gm/dL (3.2-5.2); Albumin/Globulin Ratio 1.4 (1.0-2.3); Alkaline Phosphatase 85 U/L (39-117); Bilirubin,Direct < 0.2 mg/dL (0.0-0.3); Blood Urea Nitrogen 7 mg/dl (8-23); Gamma Glutamyl Transpeptidase 14 U/L (5-36); Uric Acid 4.4 mg/dL (2.5-8.0)
--- NOTE | 2018-03-11 12:02 | Internal Med Progress Note ---
Medical - PN: Subj Patient information: Note initiated : 03/11/18 at 12:00 pm Service Date, if different from initiated Date: [] Patient: Geno Lucas a 87 y/o F admitted on 03/10/18 for Cough, PNA, Possible GI Bleed,. Chief Complaint: [] Interval history: Ms. Lucas is a 87 year old F with history of upper GI bleed in the past atrial fibrillation on Eliquis presents to the emergency room for shortness of breath on exertion palpitations that has been bothering her for the last 1 week. The patient notes that for the last 1 week she has felt very weak, very short of breath. She noticed this started last Thursday she was feeling very tired and she went to sleep and woke up the next day. She was feeling better then and went for her aerobics class and noted that she is very short of breath on activities that usually she could do without any problems. The patient then subsequently came down with cough, weakness myalgias. The cough was dry without any expectoration. The patient admits to having dark stools but no obvious blood in the stools no black stools no blood in the urine. She was seen in urgent care center at [facility] weighted workup on her chest x-ray labs and was sent here to the ER with a diagnosis of possible pneumonia as well as anemia. In the emergency room patient had a low-grade temperature 99.4 heart rate 97 blood pressure 152 x 54 respirations 22, saturating 100% on 2 L of oxygen. Chest x-ray was interpreted as pneumonia by the urgent care provider, I am unable to appreciate any pneumonia looking at those images. Blood cultures were sent patient was given antibiotics Labs showed a hemoglobin of 6.9, occult blood test was positive patient is being admitted to the hospital for further management 03/11 Patient seen and examined, shortness of breath is a bit better today. She denies any overt melena or bleeding in her stools. Influenza a is positive patient is on Tamiflu. Status post transfusion 2 units hemoglobin shyam appropriately. I reviewed the plan of care with Dr. Holt the patient's primary GI specialist who noted further workup can be done as an outpatient Pertinent ROS: Denies headache, dizziness Denies chest pain, palpitations improving cough and shortness of breath Denies abdominal pain, nausea or vomiting. - Constitutional Vitals: Vital Signs Temp Pulse Resp BP Pulse Ox 97.6 F 112 H 24 H 136/67 96 03/11/18 07:20 03/11/18 07:20 03/11/18 07:20 03/11/18 07:20 03/11/18 07:20 Period Temp Pulse Resp BP Sys/[place] Pulse Ox Last 24 Hr 97.3 F-99.4 F 40-112 18-28 125-152/45-74 86-100 Intake and Output 03/10/18 03/11/18 03/11/18 21:59 05:59 13:59 Intake Total 650 / 1695 1045 / 1695 325 / 325 Output Total 2100 / 2100 Balance 650 / -405 -1055 / -405 325 / 325 Weight 153 lb Intake & Output: Intake & Output 03/10/18 03/11/18 03/11/18 21:59 05:59 13:59 Intake Total 650 / 1695 1045 / 1695 325 / 325 Output Total 2100 / 2100 Balance 650 / -405 -1055 / -405 325 / 325 Weight 153 lb Intake: IV 650 / 670 20 / 670 Sodium Chloride 0.9% 1,000 ml @ 500 / 500 Wide Open IV BOLUS ONE Rx#: [id number] Sodium Chloride 0.9% 250 ml @ 20 / 20 20 mls/hr IV .[id number] ADRIEL Rx#: [id number] Oral 700 / 700 Blood Product 325 / 325 325 / 325 Output: Void Amount 2100 / 2100 Other: Urine Appearance Clear Urine Color Pale Urine Odor Normal # Voids 600 1 Exam: Constitutional; Afebrile, cooperative, alert, not in distress. Respiratory system: Air Entry equal on both sides, No crackles or wheezing, no rhonchi. CVS- Rate rhythm regular, S1,S2 heard, no gallop, no rub. 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 . Medical - PN: Obj Da - Labs CBC & Chem 7: 03/11/18 10:09 03/11/18 10:09 Labs: Abnormal Lab Results 03/11/18 03/11/18 03/10/18 10:09 10:09 21:30 WBC 2.8 L RBC 3.72 L Hgb 10.1 L Hct 32.0 L RDW 15.7 H Gran % Lymph % (Auto) [place] % (Auto) 17.0 H Gran # 1.7 L Lymph # (Auto) 0.6 L Absolute Retic BUN 7 L Glucose 135 H Calcium 8.0 L Phosphorus 2.4 L Iron Transferrin % Sat Total Protein 5.6 L Vitamin B12 Urine Occult Blood 0.03 A 03/10/18 03/10/18 03/10/18 18:34 18:34 18:15 WBC RBC Hgb Hct RDW Gran % Lymph % (Auto) [place] % (Auto) Gran # Lymph # (Auto) Absolute Retic 4.2 H BUN Glucose Calcium 7.6 L Phosphorus Iron 11 L Transferrin % Sat 3 L Total Protein 5.6 L Vitamin B12 194.0 L Urine Occult Blood 03/10/18 18:15 WBC RBC 2.60 L Hgb 6.9 L* Hct 21.4 L RDW 15.1 H Gran % 78.9 H Lymph % (Auto) 11.1 L [place] % (Auto) Gran # Lymph # (Auto) 0.5 L Absolute Retic BUN Glucose Calcium Phosphorus Iron Transferrin % Sat Total Protein Vitamin B12 Urine Occult Blood Meds: Medications Acetaminophen (Tylenol) 650 mg PO Q6HP PRN PRN Reason: PAIN/FEVER > 101 Albuterol Sulfate (Ventolin) 2.5 mg NEB Q2HP PRN PRN Reason: Shortness Of Breath Cyanocobalamin (Vitamin B-12) 1,000 mcg PO DAILY [facility] Last Admin: 03/11/18 09:45 Dose: 1,000 mcg Documented by: Hydromorphone HCl (Dilaudid) 0.5 mg IV Q2HP PRN PRN Reason: PAIN LEVEL > 6 Levofloxacin (Levaquin) 750 mg in 150 mls @ 100 mls/hr IV Q24H [facility] Last Admin: 03/11/18 09:46 Dose: 100 mls/hr Documented by: Naloxone HCl (Narcan) 0.1 mg IV Q2MIN PRN PRN Reason: Opiate Reversal Ondansetron HCl (Zofran) 4 mg IV Q6HP PRN PRN Reason: Nausea And Vomiting Oseltamivir Phosphate (Tamiflu) 75 mg PO BID [facility] Last Admin: 03/11/18 09:45 Dose: 75 mg Documented by: Oxycodone HCl (Roxicodone) 5 mg PO Q4HP PRN PRN Reason: PAIN LEVEL 3-6 Pantoprazole Sodium (Protonix) 40 mg IV BIDAC [facility] Last Admin: 03/11/18 06:58 Dose: 40 mg Documented by: Sodium Chloride (Saline Flush) 10 ml IV Q8 [facility] Last Admin: 03/11/18 05:14 Dose: Not Given Documented by: Medical - PN: A/P - Time Spent With Patient Total time spent is greater than 50% in coordination of care (as documented) at patient's floor/unit and/or counseling patient: - Narrative A/P Narrative: A/P Acute blood loss anemia GI bleed, upper vs Lower ATrial fibrillation on eliquis (takes only one pill daily) Pulmonary fibrosis VIral syndrome, vs PNA GERD HTN Influenza A Plan s/p transfusion hb is now 10 trend hb On tamiflu now. IV PPI for now touch base with Dr Holt, if remains stable further workup as outpatient. hold eliquis for now Resume home meds as appropriate Regular diet Full code. Medical - PN: Qual - VTE Deep Vein Thrombosis/Pulmonary Embolism Present on Admission: Yes
[2018-03-11] MEDS ORDERED: guaiFENesin/DEXTROMETHORPHAN ORAL SOL PO PRN (16:45)
[2018-03-11] MEDS ORDERED: HYDROCODONE PO PRN (19:26)
[2018-03-11] MEDS ORDERED: CHLORPHENIRAMINE PO PRN (19:26)
[2018-03-11] MEDS ORDERED: ZOLPIDEM 5 MG TABLET PO PRN (19:27)
[2018-03-11] MEDS ORDERED: FERROUS SULFATE 325 MG TABLET PO SCH (19:30)
[2018-03-11] MEDS ORDERED: ATORVASTATIN 20 MG TABLET PO SCH (21:00)
[2018-03-11] MEDS ORDERED: TRAVOPROST OPHTH DROPS BOTTLE 2.5ML OU SCH (21:00)
[2018-03-11] MEDS ORDERED: PRAMIPEXOLE 0.25 MG TABLET PO SCH (21:00)
[2018-03-11] MEDS ORDERED: AMITRIPTYLINE 25 MG TABLET PO PRN (21:00)
[2018-03-12] MEDS: 0.9 % SODIUM CHLORIDE 10 ML SYRINGE IV SCH ×2 (03:17→05:36)
--- NOTE | 2018-03-12 05:48 | XRay Report ---
CLINICAL INFORMATION: pneumonia COMPARISON: 03/10/2018 FINDINGS: The heart is mildly enlarged, but unchanged. Mediastinum and pulmonary vessels are normal. There is minimal patchy airspace disease in both lower lobes. No effusion. IMPRESSION: Minimal patchy bibasilar airspace disease. Patient had bilateral infiltrates in this region 2012 and therefore, suspect this is more likely fibrosis rather than developing infiltrate. Suggest follow-up films in next one to two days Interpreted and Authenticated by: Raymond Mathis 03/12/18
[2018-03-12 05:54] LABS: Basophils # (Auto) 0 K/mcL (0.0-0.3); Basophils % (Auto) 0.8 % (0.0-2.0); Eosinophils # (Auto) 0.1 K/mcL (0.0-0.7); Eosinophils % (Auto) 3.3 % (0.0-7.0); Granulocytes % (Auto) 42.9 % (38.0-78.0); Mean Cell Volume 85.1 fL (80.0-100.0); Mean Corpuscular HGB Conc 32.5 g/dL (31.0-36.0); Monocytes # (Auto) 0.5 K/mcL (0.1-0.9); Platelet Count 249 K/mcL (140-440); Red Cell Distribution Width 15.4 % (11.5-14.5)
[2018-03-12 06:24] LABS: ALT/SGPT 14 U/l (0-40); Albumin 3.1 gm/dL (3.2-5.2); Albumin/Globulin Ratio 1.3 (1.0-2.3); Alkaline Phosphatase 79 U/L (39-117); Bilirubin,Direct < 0.2 mg/dL (0.0-0.3); Blood Urea Nitrogen 11 mg/dl (8-23); Gamma Glutamyl Transpeptidase 16 U/L (5-36); Uric Acid 4.2 mg/dL (2.5-8.0)
[2018-03-12] MEDS: PANTOPRAZOLE 40 MG VIAL IV SCH (08:25)
[2018-03-12] MEDS: CYANOCOBALAMIN (VITAMIN B-12) 500 MCG TABLET PO SCH (08:26)
[2018-03-12] MEDS: LEVOFLOXACIN 750 MG/150 ML BAG IV SCH (08:26)
[2018-03-12] MEDS: OSELTAMIVIR PHOSPHATE 75 MG CAPSULE PO SCH (08:27)
[2018-03-12] MEDS ORDERED: amLODIPine 5 MG TABLET PO SCH (09:00)
[2018-03-12] MEDS ORDERED: FERROUS SULFATE 325 MG TABLET PO SCH (09:00)
--- NOTE | 2018-03-12 10:16 | Discharge Summary ---
Medical - DS: Prov Patient information: Note initiated : 03/12/18 at 9:54 am Service Date, if different from initiated Date: [] Patient: Geno Lucas 87 y/o F admitted on 03/10/18 for Cough, PNA, Possible GI Bleed,. Chief Complaint: [] Date of admission: 03/10/18 21:16 Discharge date: 03/12/18 Primary care physician: Dafne Yao Consults: 03/10/18 Consult to Physician [CONS] Stat Comment: Consulting Provider: Teresita Moody Reason For Exam: Physician to Consult Discharging clinician: Teresita Moody Medical - DS: Meds - Discharge Medications Prescriptions: Cyanocobalamin (Vitamin B-12) [Vitamin B12] 2,500 mcg PO DAILY #100 tab.chew Oseltamivir Phosphate [Tamiflu] 75 mg PO BID #10 capsule Active and Home Medications: Home Medications Amitriptyline [Elavil] 50 mg PO HS PRN 10/14/17 [History Confirmed 03/10/18 Last Taken 03/09/18 21:00] Apixaban [Eliquis] 5 mg PO BID 10/14/17 [History Confirmed 03/10/18 Last Taken 03/10/18 11:00] amLODIPine [Norvasc] 5 mg PO DAILY 10/14/17 [History Confirmed 03/10/18 Last Taken 03/09/18 09:00] Atorvastatin [Lipitor] 20 mg PO HS 03/10/18 [History Confirmed 03/10/18 Last Taken 03/09/18 21:00] Esomeprazole Magnesium [Nexium 24Hr] 20 mg PO ONCE 03/10/18 [History Confirmed 03/10/18 Last Taken 03/10/18 07:00] Ferrous Sulfate [Iron] 325 mg PO ONCE 03/10/18 [History Confirmed 03/10/18 Last Taken 03/09/18 09:00] Pramipexole [Mirapex] 0.25 mg PO HS 03/10/18 [History Confirmed 03/10/18 Last Taken 03/09/18 21:00] Travoprost Ophth Drops [Travatan Z Ophth Drops] 1 gtt OU HS 03/10/18 [History Confirmed 03/10/18 Last Taken 03/09/18 21:00] Tussionex ER Susp 5 ml PO Q12HP PRN 03/10/18 [History Confirmed 03/10/18 Last Taken 03/09/18 09:00] Medical - DS: Hosp Hospital course: Ms. Lucas is a 87 year old F with history of upper GI bleed in the past atrial fibrillation on Eliquis presents to the emergency room for shortness of breath on exertion palpitations that has been bothering her for the last 1 week. The patient notes that for the last 1 week she has felt very weak, very short of breath. She noticed this started last Thursday she was feeling very tired and she went to sleep and woke up the next day. She was feeling better then and went for her aerobics class and noted that she is very short of breath on activities that usually she could do without any problems. The patient then subsequently came down with cough, weakness myalgias. The cough was dry without any expectoration. The patient admits to having dark stools but no obvious blood in the stools no black stools no blood in the urine. She was seen in urgent care center at [facility] weighted workup on her chest x-ray labs and was sent here to the ER with a diagnosis of possible pneumonia as well as anemia. In the emergency room patient had a low-grade temperature 99.4 heart rate 97 blood pressure 152 x 54 respirations 22, saturating 100% on 2 L of oxygen. Chest x-ray was interpreted as pneumonia by the urgent care provider, I am unable to appreciate any pneumonia looking at those images. Blood cultures were sent patient was given antibiotics Labs showed a hemoglobin of 6.9, occult blood test was positive patient is being admitted to the hospital for further management 03/11 Patient seen and examined, shortness of breath is a bit better today. She denies any overt melena or bleeding in her stools. Influenza a is positive patient is on Tamiflu. Status post transfusion 2 units hemoglobin shyam appropriately. I reviewed the plan of care with Dr. Holt the patient's primary GI specialist who noted further workup can be done as an outpatient 03/12 Pt seen examined, doing well, no acute complaints or concerns, still has cough, but feels overall better will hold eliquis, outpatient GI follow up with her GI doc, pt will need EGD/Colonoscopy continue iron supplementation start on b12 supplementation. In Summary A/P anemia, Iron deficiency- Due to GI blood loss, chr, likely, continue iron supplementation. Hb stable, 10.5 at discharge. was 6.9 on presentation, 2 units transfused. B12 deficiency- start oral replacement, GI bleed, upper vs Lower - Pt recently had EGD, healing esophageal ulcer, may need a colonoscopy, outpatient follow up with GI ATrial fibrillation on eliquis (takes only one pill daily) -for now advise to hold eliquis till EGD/Colonoscopy repeated, GI to decide when to resume anticoagulation Influenza A- treat with tamiflu, 5 more days after discharge Discharge diagnosis: GI bleed, iron def anemia, Influenza - Time Spent with Patient Total time spent providing and/or coordinating discharge services: Greater than 30 minutes Medical - DS: Exam - Constitutional Vitals: Vital Signs Temp Pulse Resp BP Pulse Ox 03/12/18 07:00 97.9 F 18 133/60 93 03/12/18 03:18 97.8 F 71 18 136/65 93 03/11/18 23:03 98.2 F 101 H 20 135/58 94 03/11/18 18:57 98.2 F 90 20 117/57 94 03/11/18 16:00 97.5 F 95 H 134/66 98 03/11/18 12:00 97.8 F 101 H 20 130/69 95 Intake and Output 03/11/18 03/12/18 03/12/18 21:59 05:59 13:59 Intake Total 950 / 1675 400 / 1675 Output Total 600 / 600 Balance 950 / 1075 -200 / 1075 Intake: IV 150 / 150 Oral 800 / 1200 400 / 1200 Output: Void Amount 600 / 600 Other: Meal Dinner Percent of Meal Consumed 100% Feeding Ability Independent Weight 148 lb Additional comments: Constitutional; Afebrile, cooperative, alert, not in distress. Respiratory system: Air Entry equal on both sides, No crackles or wheezing, no rhonchi. CVS- Rate rhythm regular, S1,S2 heard, no gallop, no rub. 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 Medical - DS: Data Labs on day of discharge: Labs from last 24 hours 03/12/18 03/12/18 03/11/18 04:25 04:25 10:09 WBC 2.9 L RBC 3.80 L Hgb 10.5 L Hct 32.3 L MCV 85.1 MCH 27.6 MCHC 32.5 RDW 15.4 H Plt Count 249 MPV 8.3 Gran % 42.9 Lymph % (Auto) 34.0 [place] % (Auto) 19.0 H Eos % (Auto) 3.3 Baso % (Auto) 0.8 Gran # 1.2 L Lymph # (Auto) 1.0 L [place] # (Auto) 0.5 Eos # (Auto) 0.1 Baso # (Auto) 0 Sodium 143 141 Potassium 3.8 3.9 Chloride 109 H 107 Carbon Dioxide 24 22 Anion Gap 10.0 12.0 BUN 11 7 L Creatinine 0.8 0.7 GFR Calculation 67 78 Glucose 98 135 H Uric Acid 4.2 4.4 Calcium 8.1 L 8.0 L Phosphorus 2.8 2.4 L Magnesium 2.0 1.9 Total Bilirubin 0.2 0.2 Direct Bilirubin < 0.2 < 0.2 GGT 16 14 AST 28 24 ALT 14 12 Alkaline Phosphatase 79 85 Lactate Dehydrogenase 239 218 Total Protein 5.4 L 5.6 L Albumin 3.1 L 3.3 Globulin 2.3 2.3 Albumin/Globulin Ratio 1.3 1.4 Triglycerides 65 78 03/11/18 10:09 WBC 2.8 L RBC 3.72 L Hgb 10.1 L Hct 32.0 L MCV 86.1 MCH 27.3 MCHC 31.7 RDW 15.7 H Plt Count 263 MPV 8.2 Gran % 60.4 Lymph % (Auto) 20.3 [place] % (Auto) 17.0 H Eos % (Auto) 1.5 Baso % (Auto) 0.8 Gran # 1.7 L Lymph # (Auto) 0.6 L [place] # (Auto) 0.5 Eos # (Auto) 0 Baso # (Auto) 0 Sodium Potassium Chloride Carbon Dioxide Anion Gap BUN Creatinine GFR Calculation Glucose Uric Acid Calcium Phosphorus Magnesium Total Bilirubin Direct Bilirubin GGT AST ALT Alkaline Phosphatase Lactate Dehydrogenase Total Protein Albumin Globulin Albumin/Globulin Ratio Triglycerides Preliminary micro results at discharge 03/10/18 18:47 Blood Culture - Preliminary Blood 03/10/18 18:52 Blood Culture - Preliminary Blood Medical - DS: A/P - Patient/Caregiver Discharge Instructions Activity: increase activity as tolerated Diet: Regular Diet Additional Instructions: Take your medications as prescribed For influenza, take tamiflu 1 tab twice daily x 5 days. You have low iron stores as well as low vitamin b12 level Please continue with iron supplementation, it may help to take vitamin C along with iron tablet to help with absorbtion Please take vitamin b12 supplements, as this will help bone marrow function. FOllow up with PCP in [address] Holt in 1 week, further testing as per him. Hold Eliquis for now, till Dr Holt ok's the use of this medication. GO to the ER if you notice black stools, worsening symptoms, or any other acute concern. - Follow up Plan Follow up with: Margarito Padron MD [Physician] - (The office will call you with a follow up appointment. If you have not hear from the office by Thursday, please call and scheduled this.) Dafne Yao MD [Primary Care Provider] - 03/25/18 3:40 pm Disposition: Home, Self-Care Prognosis: Fair Rehab Potential: Fair I certify that the patient requires SNF services: No Overall status at discharge: patient is progressing back to baseline Medical - DS: Qual - VTE Deep Vein Thrombosis/Pulmonary Embolism Present on Admission: Yes
== END 2018-03-12 12:20 | disposition home or self-care (01) | DRG 377 ==
LOC: ED 17:56 → MEDSUR 21:16
PROVIDERS: ADMIT Internal Medicine; ATTEND Internal Medicine